=== PATIENT | male | born 1975 | race Caucasian/White ===

== ENCOUNTER 2024-09-08 00:14 | Inpatient (IN) ==
--- NOTE | 2024-09-08 00:29 | Emergency Department Note ---
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 Patient tried Tylenol with no relief of symptoms. Patient denies loss of bowel bladder control, saddle anesthesia, fever, chills, leg weakness, IV drug use. No trauma. 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 Repeat imaging in 2021 was unchanged. No follow-up since then per patient. Home Medications Medication Instructions Recorded Confirmed Type aspirin 81 mg tablet,delayed 81 mg PO DAILY #30 tabs 09/27/20 09/08/24 Rx release levothyroxine 150 mcg tablet 150 mcg PO DAILY #90 tabs 06/08/22 09/08/24 Rx clopidogrel 75 mg tablet 75 mg PO DAILY 09/08/24 09/08/24 History Allergies Allergy/AdvReac Type Severity Reaction Status Date / Time No Known Allergies Allergy Verified 09/08/24 01:01 Past Med/Surg History Problem List (Updated 09/08/24 @ 03:44 by Janett Davis PA-C) Intractable low back pain (Acute) Lumbar radiculopathy (Acute) Adenomatous polyps Benign essential hypertension Hepatic artery dissection Colon cancer screening Encounter for pre-operative examination Negative covid test 11/20/19. Hyperglycemia Hypothyroidism ADHD (attention deficit hyperactivity disorder), inattentive type Medical History ADHD (attention deficit hyperactivity disorder), inattentive type Diverticular disease Diverticulitis Hypothyroidism Surgical History History of wisdom tooth extraction Family History Grandfather (Maternal) Diabetes Heart disease Other No family history of adverse response to anesthesia Denies family history of Ovarian cancer Prostate cancer Myocardial infarction Breast cancer Lung cancer Colorectal cancer Hypertension Social History (Updated 06/06/22 @ 16:34 by Memo Potter MD) Smoking Status: Current every day smoker Tobacco Type: E-cigarettes / Vaping Age Started Using Tobacco: 26; Age Quit Using Tobacco: 36; packs per day: 0.50; Cigarettes Per Day: 10/day; Second Hand Exposure: No; Do You Dip or Chew Tobacco: No; Hx Alcohol Use: Yes Alcohol type: wine Alcohol Intake Frequency: Monthly or Less Hx Substance Use: No Preferred Language: Welsh Communication Ability: Effective Hearing Ability: Normal 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 Beliefs That Will Affect Care: None marital status: Current Living Situation: Spouse and Family Current Living Situation Comment: Lives with and 6 daughters How many Children do You have: 3 Feels Safe at Home: Yes Childhood Exposure to Second-Hand Smoke: Yes Seatbelt Use: always Sunscreen Use: Yes Assistive Devices: None Review of Systems A total of 10 systems reviewed and were otherwise negative Physical Exam Vital Signs Vital Signs - 24 hr 09/08/24 00:14 09/08/24 01:39 09/08/24 01:41 Temperature 36.7 C Temperature Source Temporal Artery Scan Pulse Rate 95 H 87 87 Pulse Rate from SpO2 Sensor 87 Respiratory Rate 20 23 Respiratory Effort / Characteristics Non-Labored Spontaneous Respiratory Depth Normal Blood Pressure 171/93 H 131/87 Blood Pressure Mean 119 101 Pulse Oximetry 95 94 Oxygen Delivery Method Room Air Room Air Sepsis Recent Fever Within 48 Hours No Sepsis New/Unexplained Change in Mental Status No Sepsis Action Taken by Nursing No Action Required 09/08/24 01:42 09/08/24 01:51 09/08/24 01:57 Temperature Temperature Source Pulse Rate 87 89 86 Pulse Rate from SpO2 Sensor 87 88 87 Respiratory Rate 27 H 18 19 Respiratory Effort / Characteristics Respiratory Depth Blood Pressure Blood Pressure Mean Pulse Oximetry 93 93 94 Oxygen Delivery Method Room Air Room Air Room Air Sepsis Recent Fever Within 48 Hours Sepsis New/Unexplained Change in Mental Status Sepsis Action Taken by Nursing 09/08/24 02:00 09/08/24 02:03 09/08/24 02:30 Temperature Temperature Source Pulse Rate 85 81 Pulse Rate from SpO2 Sensor 85 Respiratory Rate 20 20 Respiratory Effort / Characteristics Respiratory Depth Blood Pressure 123/97 122/90 Blood Pressure Mean 106 96 Pulse Oximetry 93 93 Oxygen Delivery Method Room Air Room Air Sepsis Recent Fever Within 48 Hours Sepsis New/Unexplained Change in Mental Status Sepsis Action Taken by Nursing 09/08/24 03:00 09/08/24 03:21 09/08/24 03:30 Temperature Temperature Source Pulse Rate 82 86 84 Pulse Rate from SpO2 Sensor 84 86 84 Respiratory Rate 20 18 17 Respiratory Effort / Characteristics Respiratory Depth Blood Pressure 139/96 119/93 Blood Pressure Mean 110 101 Pulse Oximetry 94 92 92 Oxygen Delivery Method Room Air Room Air Sepsis Recent Fever Within 48 Hours Sepsis New/Unexplained Change in Mental Status Sepsis Action Taken by Nursing VITALS: Vitals are noted on the nurse's note and reviewed by myself. Vital signs stable. GENERAL: Pleasant patient who appears in pain, in no acute distress, nondiaphoretic, well-developed well-nourished. SKIN: Capillary reflex less than 2 seconds. HEENT: Normocephalic. PERRLA. EOMI. Nares patent. Mucous membranes moist. Neck is supple without nuchal rigidity. HEART: Regular rate and rhythm LUNGS: Clear to auscultation bilaterally without wheezes, rales or rhonchi. No retractions or accessory muscle use. ABDOMEN: Positive bowel sounds x 4. Normal tympanic percussion. Soft, nontender, without masses or organomegaly. Garvin sign negative. No guarding or rebound tenderness. no CVA tenderness MUSCULOSKELETAL: No gross musculoskeletal defects. No thoracic or lumbar tenderness. Positive straight leg raise bilaterally, patient plantarflex and dorsiflex. NEURO: Patient was alert and oriented to person place and time. No focal neurological deficits. Course Administered Medications Discontinued Medications Dexamethasone Sodium Phosphate (DexamethasonePf 10 Mg/Ml Vial) 10 mg IV NOW ONE Stop: 09/08/24 00:50 Last Admin: 09/08/24 01:39 Dose: 10 mg Documented By: ARAVIND Diazepam (Diazepam 5 Mg/Ml 10ml Vial) 5 mg IV NOW STA Stop: 09/08/24 00:50 Last Admin: 09/08/24 01:39 Dose: 5 mg Documented By: ARAVIND Ioversol (Optiray 320 125ml) 125 ml IV ONCE ONE Stop: 09/08/24 01:37 Last Admin: 09/08/24 01:39 Dose: 118 ml Documented By: COLLEEN Ketorolac Tromethamine (Ketorolac Tromethamine 15 Mg/Ml Vial) 10 mg IV NOW STA Stop: 09/08/24 00:27 Last Admin: 09/08/24 00:33 Dose: 10 mg Documented By: ARAVIND Morphine Sulfate (Morphine Sulfate 4 Mg/Ml 1 Ml Carp\Vial) 4 mg IV NOW STA Stop: 09/08/24 02:53 Last Admin: 09/08/24 02:55 Dose: 4 mg Documented By: ARAVIND Medical Decision Making Medical Records Attestation: I reviewed the patient's medical records. Home Medications Current Medication List: was personally reviewed by me Laboratory Data Attestation: I reviewed the patient's lab results. 09/08/24 00:30 09/08/24 00:30 Lab Results 09/08/24 Range/Units 00:30 WBC 10.13 (4.8-10.8) K/ul RBC 5.06 (4.70-6.10) M/uL Hgb 15.7 (14.0-18.0) g/dl Hct 46.7 (42.0-52.0) % MCV 92.3 (80.0-100.0) fL MCH 31.0 (25.0-34.0) pg MCHC 33.6 (32.0-36.0) g/dL RDW Std Deviation 43.6 (36.4-46.3) fL RDW Coeff of [place] 12.8 (11.5-14.5) % Plt Count 228 (130-400) K/uL MPV 10.9 (9.4-12.4) fL Immature Gran % (Auto) 0.3 % Neut % (Auto) 65.7 % Lymph % (Auto) 26.1 % [place] % (Auto) 4.4 % Eos % (Auto) 2.9 % Baso % (Auto) 0.6 % Neut # (Auto) 6.66 H (1.40-6.50) K/uL Lymph # (Auto) 2.64 (1.20-3.40) K/uL [place] # (Auto) 0.45 (0.11-0.59) K/uL Eos # (Auto) 0.29 (0.00-0.50) K/uL Baso # (Auto) 0.06 (0.00-0.20) K/uL Immature Gran # (Auto) 0.03 (0.01-0.20) K/uL Sodium 137 (136-145) mmol/L Potassium 3.7 (3.5-5.1) mmol/L Chloride 102 (98-107) mmol/L Carbon Dioxide 28 (21-32) mmol/L Anion Gap 7 (3-11) BUN 12 (6-23) mg/dl Creatinine 1.15 (0.6-1.4) mg/dl Est Cr Clr Drug Dosing 83.4 ml/min eGFR 77.05 BUN/Creatinine Ratio 10.4 (10-20) Glucose 104 H (70-99(Fasting)) mg/dl Calcium 8.9 (8.6-10.3) mg/dl Total Bilirubin 0.4 (0.2-1.0) mg/dl AST 27 (13-39) U/L ALT 36 (7-52) U/L Alkaline Phosphatase 77 (34-104) U/L Total Protein 7.8 (6.0-8.3) gm/dl Albumin 4.5 (3.4-5.0) gm/dl Globulin 3.3 (2.5-4.0) gm/dl Albumin/Globulin Ratio 1.4 (0.9-2) Imaging Data Attestation: I personally reviewed and interpreted this imaging study as follows: Radiologist's Impression: Lumbar Spine MRI 09/08/24 00:27 EXAM: MR lumbar spine wo con CLINICAL HISTORY: LBP, B leg pain, R leg numbness TECHNIQUE: Multisequential and multiplanar images of the lumbar spine were submitted for review without contrast. COMPARISON: none FINDINGS: The conus terminates at approximately L1. Alignment of the lumbar spine is normal. Bone marrow signal is normal. No evidence of compression fracture. SI joints are within normal limits. Limited evaluation of the sacrum is normal. The visualized paravertebral soft tissues are unremarkable. Loss of lumbar lordosis- likely due to paraspinal muscle spasm. Small hemangiomas seen in multiple lumbar vertebral bodies. Disc desiccation seen at L3/L4, L4/L5 and L5/S1 levels. L3-L4: Posterior small left paracentral disc protrusion indenting anterior thecal sac. No significant canal stenosis or neuroforaminal narrowing. Subarticular recesses are patent. L4-L5: Posterior mild diffuse disc bulge indenting anterior thecal sac. No significant canal stenosis or neuroforaminal narrowing. Subarticular recesses are patent. L5-S1: No disc bulge, canal stenosis or neuroforaminal narrowing. Subarticular recesses are patent. IMPRESSION: 1. Mild lumbar spondylosis. 2. Small hemangiomas seen in multiple lumbar vertebral bodies. 3. L3-L4: Posterior small left paracentral disc protrusion indenting anterior thecal sac. No significant canal stenosis or neuroforaminal narrowing. Subarticular recesses are patent. 4. L4-L5: Posterior mild diffuse disc bulge indenting anterior thecal sac. No significant canal stenosis or neuroforaminal narrowing. Subarticular recesses are patent. Electronically signed by Prasad Felton 09-08-2024 02:29 AM Abdomen/Pelvis CTA 09/08/24 00:43 EXAM: CT angio abd pelvis wo/w con CLINICAL HISTORY: severe back pain, hx celiac and hepatic dissection TECHNIQUE: Contrast enhanced thin slice CT angiography scan of the abdominal aorta was performed without and with intravenous contrast. Angiographic images were processed, 3D MIP images were acquired for interpretation. Contiguous axial images were obtained. Reformatted coronal and sagittal images were also reviewed. If IV contrast material had not been administered, the likelihood of detecting abnormalities relevant to the patients condition would have been substantially decreased. CT scan was performed according to ALARA (as low as reasonable achievable). COMPARISON: none. FINDINGS: Evidence of hypodense septum is noted involving celiac trunk extending into the proximal part of right common hepatic artery and splenic artery- suggestive of dissection. Evidence of hypodense filling defect is noted involving false lumen of right common hepatic artery dissection- suggest possibility of thrombosis. Abdominal aorta is normal in course, calibre and opacification. Origin of superior mesenteric artery , bilateral main renal and lumbar arteries are normal with no hemodynamically significant ostial stenosis noted. Bilateral common, external and internal iliac arteries are normal in course, caliber and opacification. Hepatic steatosis. Multiple small uncomplicated sigmoid colonic diverticulosis Solid abdominal organs including spleen, pancreas and bilateral kidneys reveal no significant abnormality. Bowel loops are grossly unremarkable. No evidence of ascites. IMPRESSION: 1. Evidence of hypodense septum is noted involving celiac trunk extending into the proximal part of common hepatic artery and splenic artery- suggestive of dissection. 2. Evidence of hypodense filling defect is noted involving false lumen of right common hepatic artery dissection- suggest possibility of thrombosis. 3. Hepatic steatosis. 4. Multiple small uncomplicated sigmoid colonic diverticulosis Electronically signed by Prasad Felton 09-08-2024 03:21 AM Chest CTA 09/08/24 00:43 EXAM: CT angio chest dissec wo/w con CLINICAL HISTORY: severe back pain, hx celiac and hepatic dissection TECHNIQUE: Contiguous axial images were obtained from the neck base through the upper abdomen with and without intravenous administration of iodinated contrast material. Angiographic images were processed, 3D MIP images were acquired for interpretation. If IV contrast material had not been administered, the likelihood of detecting abnormalities relevant to the patient's condition would have been substantially decreased. Coronal and sagittal 3-D MIPs were likewise performed and indicated to increase the sensitivity of detectin diffuse clinically relevant pathology. CT scan was performed according to ALARA (as low as reasonable achievable). COMPARISON: None. FINDINGS: Adequate contrast bolus without evidence of pulmonary embolism. The central airways are patent. The lungs are clear. No pleural effusion. The heart, aorta, and pulmonary arteries are of normal size and configuration. There are no appreciable coronary artery and aortic atherosclerotic calcifications. No pericardial effusion is identified. The thyroid is unremarkable. No mediastinal, hilar, or axillary lymphadenopathy is noted. No suspicious lytic or sclerotic osseous lesions are identified. IMPRESSION: No evidence of pulmonary embolism or pulmonary disease. No obvious aortic dissection or aneurysm. Electronically signed by Prasad Felton 09-08-2024 03:15 AM [facility] Narrative Prior records/ancillary studies reviewed. Triage Nursing notes reviewed. Additional history obtained from nursing. The patient's history was concerning for back pain. Differential diagnosis: Etiologies such as musculoskeletal, disc herniation, fracture, aortic disease, metastatic disease, cord compression, discitis, infection, renal colic, gastrointestinal, acute exacerbation of chronic back pain, sciatica, cauda equina, as well as others were entertained. Physical findings: As above. No focal neurologic findings noted. ER treatment provided: Toradol was ordered Morphine, Decadron and Valium was ordered, morphine was ordered On reassessment the patient felt better. Diagnostics interpreted by me: The labs Independently Interpreted by myself revealed no worrisome leukocytosis, stable H&H, glucose 104 Imaging studies: Imaging was reviewed and read by radiology I did speak to embryo and states they have no old CTs to compare to. I did inform [facility] there was a dictation and from 2020 that stated that he did have this chronic dissection. Consultation: A consultation was placed with hospitalist. The case was discussed and diagnostics were reviewed. They will evaluate the patient for possible admission.. This appears to be consistent with lumbar radiculopathy. 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 There was no old imaging for [facility] to review. Patient was neurovascularly and neurologically intact. Patient was still in moderate amount of pain and did not feel comfortable going home. Medicine was consulted and the case was discussed. He will be evaluated for admission. By the evaluation outlined above emergent etiologies such as fracture, aortic disease, metastatic disease, infection, renal colic, gastrointestinal, cord compression, cauda equina, as well as others were deemed relatively unlikely. The pt informed about the findings as listed above. All questions were answered and pleased with the treatment. The chart was completed utilizing [employer] voice recognition software. Grammatical errors, random word insertions, pronoun errors, and incomplete sentences are an occassional consequence of this system due to software limitations, ambient noise, and hardware issues. Any formal questions or concerns about the content, text, or information contained within the body of this dictation should be directly addressed to the physician assistant to the president for clarification. Impression & Plan Lumbar radiculopathy, Intractable low back pain Discharge Plan Visit Data Chief Complaint: Back Injury/Pain Stated Complaint: BACK/LEG PAIN ED Provider: Mariza Quinteros ED Midlevel Provider: Janett Davis Discharge Problem: Lumbar radiculopathy, Intractable low back pain Patient Disposition: Being Evaluated by Hospitalist Condition: Good Forms Stand Alone Forms: My [employer] Prescriptions Prescriptions: No Action levothyroxine 150 mcg tablet 150 mcg PO DAILY Qty: 90 1RF aspirin 81 mg tablet,delayed release (DR/EC) 81 mg PO DAILY Qty: 30 2RF clopidogrel 75 mg tablet 75 mg PO DAILY Referrals Referrals: Memo Potter MD [Primary Care Provider] -
[2024-09-08] MEDS: KETOROLAC TROMETHAMINE 15 MG/ML VIAL IV STA (00:33)
[2024-09-08 00:47] LABS: Hematocrit (blood only) 46.7 % (42.0-52.0); Hemoglobin 15.7 g/dl (14.0-18.0); Immature Granulocytes # (auto) 0.03 K/uL (0.01-0.20); Immature Granulocytes % (auto) 0.3 %; Mean Corpuscular Hemoglobin 31.0 pg (25.0-34.0); Mean Corpuscular Volume 92.3 fL (80.0-100.0); Platelet Count 228 K/uL (130-400); RDW Standard Deviation 43.6 fL (36.4-46.3); Red Blood Count 5.06 M/uL (4.70-6.10); White Blood Count 10.13 K/ul (4.8-10.8)
[2024-09-08 01:05] LABS: Alanine Aminotransferase 36.0 U/L (7-52); Albumin Globulin Ratio 1.4 (0.9-2); Alkaline Phosphatase 77.0 U/L (34-104); Anion Gap 7.0 (3-11); Bilirubin,Total 0.4 mg/dl (0.2-1.0); Blood Urea Nitrogen 12.0 mg/dl (6-23); Calcium 8.9 mg/dl (8.6-10.3); Carbon Dioxide 28.0 mmol/L (21-32); Chloride 102.0 mmol/L (98-107); Creatinine Clr Calc Pharmacy 83.4 ml/min; Globulin 3.3 gm/dl (2.5-4.0); Glucose 104.0 mg/dl (70-99(Fasting)); Potassium 3.7 mmol/L (3.5-5.1); Sodium 137.0 mmol/L (136-145); Total Protein 7.8 gm/dl (6.0-8.3)
[2024-09-08] MEDS: diazePAM 5 MG/ML 10ML VIAL IV STA (01:39)
[2024-09-08] MEDS: OPTIRAY 320 125ml IV ONE (01:39)
[2024-09-08] MEDS: dexAMETHasone**PF** 10 MG/ML VIAL IV ONE (01:39)
--- NOTE | 2024-09-08 02:30 | Magnetic Resonance Report ---
EXAM: MR lumbar spine wo con CLINICAL HISTORY: LBP, B leg pain, R leg numbness TECHNIQUE: Multisequential and multiplanar images of the lumbar spine were submitted for review without contrast. COMPARISON: none FINDINGS: The conus terminates at approximately L1. Alignment of the lumbar spine is normal. Bone marrow signal is normal. No evidence of compression fracture. SI joints are within normal limits. Limited evaluation of the sacrum is normal. The visualized paravertebral soft tissues are unremarkable. Loss of lumbar lordosis- likely due to paraspinal muscle spasm. Small hemangiomas seen in multiple lumbar vertebral bodies. Disc desiccation seen at L3/L4, L4/L5 and L5/S1 levels. L3-L4: Posterior small left paracentral disc protrusion indenting anterior thecal sac. No significant canal stenosis or neuroforaminal narrowing. Subarticular recesses are patent. L4-L5: Posterior mild diffuse disc bulge indenting anterior thecal sac. No significant canal stenosis or neuroforaminal narrowing. Subarticular recesses are patent. L5-S1: No disc bulge, canal stenosis or neuroforaminal narrowing. Subarticular recesses are patent. IMPRESSION: 1. Mild lumbar spondylosis. 2. Small hemangiomas seen in multiple lumbar vertebral bodies. 3. L3-L4: Posterior small left paracentral disc protrusion indenting anterior thecal sac. No significant canal stenosis or neuroforaminal narrowing. Subarticular recesses are patent. 4. L4-L5: Posterior mild diffuse disc bulge indenting anterior thecal sac. No significant canal stenosis or neuroforaminal narrowing. Subarticular recesses are patent. Electronically signed by Prasad Felton 09-08-2024 02:29 AM
[2024-09-08] MEDS: MoRPHine SULFATE 4 MG/ML 1 ML CARP\\VIAL IV STA ×2 (02:55→04:41)
--- NOTE | 2024-09-08 03:15 | CT Scan Report ---
EXAM: CT angio chest dissec wo/w con CLINICAL HISTORY: severe back pain, hx celiac and hepatic dissection TECHNIQUE: Contiguous axial images were obtained from the neck base through the upper abdomen with and without intravenous administration of iodinated contrast material. Angiographic images were processed, 3D MIP images were acquired for interpretation. If IV contrast material had not been administered, the likelihood of detecting abnormalities relevant to the patient's condition would have been substantially decreased. Coronal and sagittal 3-D MIPs were likewise performed and indicated to increase the sensitivity of detectin diffuse clinically relevant pathology. CT scan was performed according to ALARA (as low as reasonable achievable). COMPARISON: None. FINDINGS: Adequate contrast bolus without evidence of pulmonary embolism. The central airways are patent. The lungs are clear. No pleural effusion. The heart, aorta, and pulmonary arteries are of normal size and configuration. There are no appreciable coronary artery and aortic atherosclerotic calcifications. No pericardial effusion is identified. The thyroid is unremarkable. No mediastinal, hilar, or axillary lymphadenopathy is noted. No suspicious lytic or sclerotic osseous lesions are identified. IMPRESSION: No evidence of pulmonary embolism or pulmonary disease. No obvious aortic dissection or aneurysm. Electronically signed by Prasad Felton 09-08-2024 03:15 AM
--- NOTE | 2024-09-08 03:22 | CT Scan Report ---
EXAM: CT angio abd pelvis wo/w con CLINICAL HISTORY: severe back pain, hx celiac and hepatic dissection TECHNIQUE: Contrast enhanced thin slice CT angiography scan of the abdominal aorta was performed without and with intravenous contrast. Angiographic images were processed, 3D MIP images were acquired for interpretation. Contiguous axial images were obtained. Reformatted coronal and sagittal images were also reviewed. If IV contrast material had not been administered, the likelihood of detecting abnormalities relevant to the patients condition would have been substantially decreased. CT scan was performed according to ALARA (as low as reasonable achievable). COMPARISON: none. FINDINGS: Evidence of hypodense septum is noted involving celiac trunk extending into the proximal part of right common hepatic artery and splenic artery- suggestive of dissection. Evidence of hypodense filling defect is noted involving false lumen of right common hepatic artery dissection- suggest possibility of thrombosis. Abdominal aorta is normal in course, calibre and opacification. Origin of superior mesenteric artery , bilateral main renal and lumbar arteries are normal with no hemodynamically significant ostial stenosis noted. Bilateral common, external and internal iliac arteries are normal in course, caliber and opacification. Hepatic steatosis. Multiple small uncomplicated sigmoid colonic diverticulosis Solid abdominal organs including spleen, pancreas and bilateral kidneys reveal no significant abnormality. Bowel loops are grossly unremarkable. No evidence of ascites. IMPRESSION: 1. Evidence of hypodense septum is noted involving celiac trunk extending into the proximal part of common hepatic artery and splenic artery- suggestive of dissection. 2. Evidence of hypodense filling defect is noted involving false lumen of right common hepatic artery dissection- suggest possibility of thrombosis. 3. Hepatic steatosis. 4. Multiple small uncomplicated sigmoid colonic diverticulosis Electronically signed by Prasad Felton 09-08-2024 03:21 AM
--- NOTE | 2024-09-08 04:18 | History & Physical Report ---
Date of Service September 08, 2024 Assessment & Plan (1) Intractable low back pain: (2) Hepatic artery dissection: (3) Hypothyroidism: Plan 49yo male presenting with acute lumbar back pain with radiculopathy - numbness, tingling, subjective weakness of bilateral LE L>R. Pain occurred acutely after lifting up his child. Patient with chronic dissection of the hepatic artery. He has been evaluated by vascular surgery in the past and has been told that there is nothing to do. He was previously on ASA and Plavix but has been on ASA alone for a while. He has not had thrombus present in the dissection before to his knowledge. He has missed the last several followup appointments for imaging for this issue. #Intractable low back pain - acute onset 3 days ago. MRI results as above with posterior small left paracentral disc protrusion indenting anterior thecal sac at L3-L4 and L4-L5 posterior mild diffuse disc bulge indenting anterior thecal sac. -Observation to medical -Tylenol 1gm PO TID scheduled -Prednisone 40mg po daily - patient received 10mg IV Dexamethasone in ER -Flexeril 5mg po TID -Heat -Morphine PRN -Ortho-Spine consultation appreciated -PT evaluation appreciated #Hepatic artery dissection - suggestion of thrombus on imaging -Will try to have day time radiologists review imaging for comparison on dissection size and presence of thrombus -Hold ASA and Plavix for now -Anticoagulation with heparin gtt for now #Hypothyroidism -Check TSH -Continue Synthroid 150mcg po daily History of Present Illness Chief Complaint: severe back pain Primary Care Provider: Memo Potter MD Reed Calderon is a 49yo male with history of HTN, chronic dissection of hepatic artery presenting with severe back pain with radicular symptoms. Patient was picking up his child on 09/04/24 - lifting with some twisting. He heard a pop and had severe pain in his lumbar back. He has had radiation of pain as well as numbness and tingling of the LLE now with symptoms involving his RLE a well. Legs feel weak and he required some help getting up and in the vehicle this evening. No falls, trauma, fever, chills. No bowel or bladder complaints. No additional complaints at this time In the ER patient afebrile, HD stable ER Course: Toradol 10mg IV Dexamethasone 10mg IV Valium 5mg IV Morphine 4mg IV Allergies Allergy/AdvReac Type Severity Reaction Status Date / Time No Known Allergies Allergy Verified 09/08/24 01:01 Home Medications Medication Instructions Recorded Confirmed Type aspirin 81 mg tablet,delayed 81 mg PO DAILY #30 tabs 09/27/20 09/08/24 Rx release levothyroxine 150 mcg tablet 150 mcg PO DAILY #90 tabs 06/08/22 09/08/24 Rx clopidogrel 75 mg tablet 75 mg PO DAILY 09/08/24 09/08/24 History Past Med/Surg History Problem List Intractable low back pain (Acute) Lumbar radiculopathy (Acute) Adenomatous polyps Benign essential hypertension Hepatic artery dissection Colon cancer screening Encounter for pre-operative examination Negative covid test 11/20/19. Hyperglycemia Hypothyroidism ADHD (attention deficit hyperactivity disorder), inattentive type Medical History Diverticulitis Diverticular disease Surgical History History of wisdom tooth extraction Family History Grandfather (Maternal) Diabetes Heart disease Other No family history of adverse response to anesthesia Denies family history of Ovarian cancer Prostate cancer Myocardial infarction Breast cancer Lung cancer Colorectal cancer Hypertension Social History Smoking Status: Current every day smoker Tobacco Type: E-cigarettes / Vaping Age Started Using Tobacco: 26; Age Quit Using Tobacco: 36; packs per day: 0.50; Cigarettes Per Day: 10/day; Second Hand Exposure: No; Do You Dip or Chew Tobacco: No; Hx Alcohol Use: Yes Alcohol type: wine Alcohol Intake Frequency: Monthly or Less Hx Substance Use: No Preferred Language: Danish Communication Ability: Effective Hearing Ability: Normal 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 Beliefs That Will Affect Care: None marital status: Current Living Situation: Spouse and Family Current Living Situation Comment: Lives with and 6 daughters How many Children do You have: 3 Feels Safe at Home: Yes Childhood Exposure to Second-Hand Smoke: Yes Seatbelt Use: always Sunscreen Use: Yes Assistive Devices: None Review of Systems Review of Systems: All systems reviewed & are unremarkable except as noted in HPI & below Physical Exam Physical Exam: General: patient in discomfort, AA&O x 4 Skin: warm, dry, intact, no rashes or lesions HEENT: NC/AT, PERRL, EOMI, anicteric sclera, conjunctiva without injection, external ear normal to inspection and nontender, nares patent, moist mucus membranes, dentition intact, no oropharyngeal lesions, neck supple, trachea midline, no LAD, no thyromegaly, no JVD Heart: +S1/S2, regular, no m/r/g Lungs: equal air entry bilaterally, no rales/rhonchi/wheezes Abd: +BS, soft, NT/ND, no masses/organomegaly/ascites Ext: warm, 2+ pulses in UE/LE bilaterally, no clubbing/cyanosis or edema Neuro: nonfocal, patient AA&O x 4, speech intact, no facial droop, moving all extremities on command with equal strength 5/5 Pain with movement of legs Tenderness of lower lumbar paraspinal musculature Strength intact, difficult to assess reflexes Results & Data Results & Data Vital Signs (Past 12 Hours) Vital Signs Temp Pulse Resp BP Pulse Ox O2 Del Method 09/08/24 04:14 Room Air 09/08/24 04:00 76 20 146/96 H 94 Room Air 09/08/24 03:42 82 21 95 09/08/24 03:30 119/93 09/08/24 03:30 84 17 119/93 92 Room Air 09/08/24 03:21 86 18 92 09/08/24 03:00 82 20 139/96 94 Room Air 09/08/24 02:30 81 20 122/90 93 Room Air 09/08/24 02:03 85 20 93 Room Air 09/08/24 02:00 123/97 09/08/24 01:57 86 19 94 Room Air 09/08/24 01:51 89 18 93 Room Air 09/08/24 01:42 87 27 H 93 Room Air 09/08/24 01:41 87 09/08/24 01:39 87 23 131/87 94 Room Air 09/08/24 00:14 36.7 C 95 H 20 171/93 H 95 Room Air Laboratory Results Laboratory Results WBC 10.13 K/ul (4.8-10.8) 09/08/24 00:30 RBC 5.06 M/uL (4.70-6.10) 09/08/24 00:30 Hgb 15.7 g/dl (14.0-18.0) 09/08/24 00: Hct 46.7 % (42.0-52.0) 09/08/24 00: MCV 92.3 fL (80.0-100.0) 09/08/24 00: MCH 31.0 pg (25.0-34.0) 09/08/24 00: MCHC 33.6 g/dL (32.0-36.0) 09/08/24 00: RDW Std Deviation 43.6 fL (36.4-46.3) 09/08/24 00: RDW Coeff of [place] 12.8 % (11.5-14.5) 09/08/24 00: Plt Count 228 K/uL (130-400) 09/08/24 00: MPV 10.9 fL (9.4-12.4) 09/08/24 00: Immature Gran % (Auto) 0.3 % 09/08/24 00: Neut % (Auto) 65.7 % 09/08/24 00:30 Lymph % (Auto) 26.1 % 09/08/24 00:30 [place] % (Auto) 4.4 % 09/08/24 00:30 Eos % (Auto) 2.9 % 09/08/24 00: Baso % (Auto) 0.6 % 09/08/24 00:30 Neut # (Auto) 6.66 K/uL (1.40-6.50) H 09/08/24 00:30 Lymph # (Auto) 2.64 K/uL (1.20-3.40) 09/08/24 00:30 [place] # (Auto) 0.45 K/uL (0.11-0.59) 09/08/24 00:30 Eos # (Auto) 0.29 K/uL (0.00-0.50) 09/08/24 00:30 Baso # (Auto) 0.06 K/uL (0.00-0.20) 09/08/24 00:30 Immature Gran # (Auto) 0.03 K/uL (0.01-0.20) 09/08/24 00:30 Sodium 137 mmol/L (136-145) 09/08/24 00:30 Potassium 3.7 mmol/L (3.5-5.1) 09/08/24: Chloride 102 mmol/L (98-107) 09/08/24 00: Carbon Dioxide 28 mmol/L (21-32) 09/08/24 00: Anion Gap 7 (3-11) 09/08/24 BUN 12 mg/dl (6-23) 09/08/24: Creatinine 1.15 mg/dl (0.6-1.4) 09/08/24 00: Est Cr Clr Drug Dosing 83.4 ml/min 09/08/24: eGFR 77.05 09/08/24: BUN/Creatinine Ratio 10.4 (10-20) 09/08/24 Glucose 104 mg/dl (70-99(Fasting)) H 09/08/24: Calcium 8.9 mg/dl (8.6-10.3) 09/08/24: Total Bilirubin 0.4 mg/dl (0.2-1.0) 09/08/24 00: AST 27 U/L (13-39) 09/08/24:30 ALT 36 U/L (7-52) 09/08/24: Alkaline Phosphatase 77 U/L (34-104) 09/08/24: Total Protein 7.8 gm/dl (6.0-8.3) 09/08/24: Albumin 4.5 gm/dl (3.4-5.0) 09/08/24:30 Globulin 3.3 gm/dl (2.5-4.0) 09/08/24 00:30 Albumin/Globulin Ratio 1.4 (0.9-2) 09/08/24 00:30 Impressions Lumbar Spine MRI 09/08/24 00:27 EXAM: MR lumbar spine wo con CLINICAL HISTORY: LBP, B leg pain, R leg numbness TECHNIQUE: Multisequential and multiplanar images of the lumbar spine were submitted for review without contrast. COMPARISON: none FINDINGS: The conus terminates at approximately L1. Alignment of the lumbar spine is normal. Bone marrow signal is normal. No evidence of compression fracture. SI joints are within normal limits. Limited evaluation of the sacrum is normal. The visualized paravertebral soft tissues are unremarkable. Loss of lumbar lordosis- likely due to paraspinal muscle spasm. Small hemangiomas seen in multiple lumbar vertebral bodies. Disc desiccation seen at L3/L4, L4/L5 and L5/S1 levels. L3-L4: Posterior small left paracentral disc protrusion indenting anterior thecal sac. No significant canal stenosis or neuroforaminal narrowing. Subarticular recesses are patent. L4-L5: Posterior mild diffuse disc bulge indenting anterior thecal sac. No significant canal stenosis or neuroforaminal narrowing. Subarticular recesses are patent. L5-S1: No disc bulge, canal stenosis or neuroforaminal narrowing. Subarticular recesses are patent. IMPRESSION: 1. Mild lumbar spondylosis. 2. Small hemangiomas seen in multiple lumbar vertebral bodies. 3. L3-L4: Posterior small left paracentral disc protrusion indenting anterior thecal sac. No significant canal stenosis or neuroforaminal narrowing. Subarticular recesses are patent. 4. L4-L5: Posterior mild diffuse disc bulge indenting anterior thecal sac. No significant canal stenosis or neuroforaminal narrowing. Subarticular recesses are patent. Electronically signed by Prasad Felton 09-08-2024 02:29 AM Abdomen/Pelvis CTA 09/08/24 00:43 EXAM: CT angio abd pelvis wo/w con CLINICAL HISTORY: severe back pain, hx celiac and hepatic dissection TECHNIQUE: Contrast enhanced thin slice CT angiography scan of the abdominal aorta was performed without and with intravenous contrast. Angiographic images were processed, 3D MIP images were acquired for interpretation. Contiguous axial images were obtained. Reformatted coronal and sagittal images were also reviewed. If IV contrast material had not been administered, the likelihood of detecting abnormalities relevant to the patients condition would have been substantially decreased. CT scan was performed according to ALARA (as low as reasonable achievable). COMPARISON: none. FINDINGS: Evidence of hypodense septum is noted involving celiac trunk extending into the proximal part of right common hepatic artery and splenic artery- suggestive of dissection. Evidence of hypodense filling defect is noted involving false lumen of right common hepatic artery dissection- suggest possibility of thrombosis. Abdominal aorta is normal in course, calibre and opacification. Origin of superior mesenteric artery , bilateral main renal and lumbar arteries are normal with no hemodynamically significant ostial stenosis noted. Bilateral common, external and internal iliac arteries are normal in course, caliber and opacification. Hepatic steatosis. Multiple small uncomplicated sigmoid colonic diverticulosis Solid abdominal organs including spleen, pancreas and bilateral kidneys reveal no significant abnormality. Bowel loops are grossly unremarkable. No evidence of ascites. IMPRESSION: 1. Evidence of hypodense septum is noted involving celiac trunk extending into the proximal part of common hepatic artery and splenic artery- suggestive of dissection. 2. Evidence of hypodense filling defect is noted involving false lumen of right common hepatic artery dissection- suggest possibility of thrombosis. 3. Hepatic steatosis. 4. Multiple small uncomplicated sigmoid colonic diverticulosis Electronically signed by Prasad Felton 09-08-2024 03:21 AM Chest CTA 09/08/24 00:43 EXAM: CT angio chest dissec wo/w con CLINICAL HISTORY: severe back pain, hx celiac and hepatic dissection TECHNIQUE: Contiguous axial images were obtained from the neck base through the upper abdomen with and without intravenous administration of iodinated contrast material. Angiographic images were processed, 3D MIP images were acquired for interpretation. If IV contrast material had not been administered, the likelihood of detecting abnormalities relevant to the patient's condition would have been substantially decreased. Coronal and sagittal 3-D MIPs were likewise performed and indicated to increase the sensitivity of detectin diffuse clinically relevant pathology. CT scan was performed according to ALARA (as low as reasonable achievable). COMPARISON: None. FINDINGS: Adequate contrast bolus without evidence of pulmonary embolism. The central airways are patent. The lungs are clear. No pleural effusion. The heart, aorta, and pulmonary arteries are of normal size and configuration. There are no appreciable coronary artery and aortic atherosclerotic calcifications. No pericardial effusion is identified. The thyroid is unremarkable. No mediastinal, hilar, or axillary lymphadenopathy is noted. No suspicious lytic or sclerotic osseous lesions are identified. IMPRESSION: No evidence of pulmonary embolism or pulmonary disease. No obvious aortic dissection or aneurysm. Electronically signed by Prasad Felton 09-08-2024 03:15 AM PG Care Time/CCT Total # of Minutes Spent Total Time Spent with Patient: Total time spent is greater than 50% in coordination of care (as documented) at patient's floor/unit and/or counseling patient: Coding Level of Care Code 87386 INT INP/OBS CARE 3/75MIN Diagnoses Intractable low back pain M54.59 Hepatic artery dissection I77.79 Acquired hypothyroidism E03.9 Hypothyroidism type: acquired (3) Hypothyroidism Hypothyroidism type: acquired Qualified Code(s): E03.9 - Hypothyroidism, unspecified
[2024-09-08 05:33] VITALS: RESP 18
[2024-09-08] MEDS ORDERED: MoRPHine SULFATE 2 MG/ML CARP IV PRN (05:48)
[2024-09-08] MEDS ORDERED: POLYETHYLENE (MIRALAX) 17 GM PACK PO PRN (05:48)
[2024-09-08] MEDS ORDERED: ONDANSETRON INJ 2 MG/ML 2 ML VIAL IV PRN (05:48)
[2024-09-08] MEDS ORDERED: Heparin IV Adult Wt-Based Standard *NO* INITIAL Bolus Protocol IV STA (05:48)
[2024-09-08] MEDS: LEVOTHYROXINE SODIUM 150 MCG TABLET PO SCH (06:34)
[2024-09-08 07:09] LABS: INR 1.0 (0.9-1.1); Partial Thromboplastin Time 28 Seconds (21-31); Prothrombin Time 10.6 Seconds (9.0-12.0)
[2024-09-08 07:14] LABS: Thyroid Stimulating Hormone 7.184 uIu/ml (0.300-4.500)
[2024-09-08] MEDS: HEPARIN 25000 UNIT/500 ML D5W 25,000 UNITS/500 ML BAG IV SCH (07:20)
[2024-09-08 07:31] VITALS: BP 147/90; PULSE 81; TEMP 97.7; O2SAT 93
[2024-09-08] MEDS: DOCUSATE SODIUM 100 MG CAP PO SCH (08:19)
[2024-09-08] MEDS: MoRPHine SULFATE 4 MG/ML 1 ML CARP\\VIAL IV PRN (08:19)
[2024-09-08] MEDS: ACETAMINOPHEN 500 MG TAB PO SCH (08:19)
[2024-09-08] MEDS: CYCLOBENZAPRINE HCL 5 MG TAB PO SCH (08:20)
[2024-09-08] MEDS: predniSONE 20 MG TAB PO SCH (08:20)
--- NOTE | 2024-09-08 09:21 | Orthopedic Consultation ---
Date of Service September 08, 2024 Assessment & Plan (1) Bulging lumbar disc: * Case/imaging reviewed and discussed with Dr Gallardo * MRI reviewed, minimal disc bulge at the L3-4 level * Recommend conservative care, including PT/OT for mobilization and pain control * Pain management consult placed * Otherwise recommend NSAID, Lyrica, steroid taper * Disposition: Home * Daily treatment: Physical Therapy/ Occupational Therapy per protocol * Weight bearing status: As tolerated * Pain control * Remainder care per primary team * Will continue to follow, plan for outpatient follow-up History of Present Illness Reason for Consultation: . Low back pain Requesting Physician: . Attending Physician: Marissa Jacobs MD Patient is a 49y/o male with low back pain. PMH including known hepatic artery dissection, hypothyroidism, hyperglycemia. Presents to hospital with persistent low back pain. Per report patient bent down to pick something up a few days ago and felt a pop/strain in his low back today and has had persistent pain, spasm of the low back with limited mobility and weakness secondary to pain of both legs, left worse than right. Had been trying to manage conservatively at home however due to persistence of symptoms presented to ED for further evaluation. Current workup including MRI lumbar spine demonstrates slight disc bulge at L3- 4, otherwise no fracture or malalignment of the lumbar spine. Admitted to medicine team for observation.. Orthopedics consulted for management recommendations. At time of exam patient lying comfortably in bed, no acute distress. Endorses constant mildmoderate pain of the lumbar region that also radiates down both legs, left worse than right reports subjective numbness throughout the bilateral thighs, again left worse than right. Requires assistance for ambulation. Denies changes in bowel/bladder function, denies paresthesias of the groin or perianal region. Allergies Allergy/AdvReac Type Severity Reaction Status Date / Time No Known Allergies Allergy Verified 09/08/24 01:01 Home Medications Medication Instructions Recorded Confirmed Type aspirin 81 mg tablet,delayed 81 mg PO DAILY #30 tabs 09/27/20 09/08/24 Rx release levothyroxine 150 mcg tablet 150 mcg PO DAILY #90 tabs 06/08/22 09/08/24 Rx clopidogrel 75 mg tablet 75 mg PO DAILY 09/08/24 09/08/24 History Past Med/Surg History Problem List (Updated 09/08/24 @ 09:19 by Diaz Paula PA-C) Bulging lumbar disc Intractable low back pain (Acute) Lumbar radiculopathy (Acute) Adenomatous polyps Benign essential hypertension Hepatic artery dissection Colon cancer screening Encounter for pre-operative examination Negative covid test 11/20/19. Hyperglycemia Hypothyroidism ADHD (attention deficit hyperactivity disorder), inattentive type Medical History Diverticulitis Diverticular disease Surgical History History of wisdom tooth extraction Family History Grandfather (Maternal) Diabetes Heart disease Other No family history of adverse response to anesthesia Denies family history of Ovarian cancer Prostate cancer Myocardial infarction Breast cancer Lung cancer Colorectal cancer Hypertension Social History Smoking Status: Current every day smoker Tobacco Type: Cigarettes Age Started Using Tobacco: 26; Age Quit Using Tobacco: 36; packs per day: 0.50; Cigarettes Per Day: 1-2; Second Hand Exposure: No; Do You Dip or Chew Tobacco: No; Hx Alcohol Use: Yes Alcohol type: beer and wine Alcohol Intake Frequency: Monthly or Less Hx Substance Use: No Preferred Language: Persian Communication Ability: Effective Hearing Ability: Normal Radio Communications Superintendent Required: No Beliefs That Will Affect Care: None marital status: Current Living Situation: Spouse Current Living Situation Comment: Lives with and 6 daughters How many Children do You have: 3 Feels Safe at Home: Yes Safety Concerns: Feels Safe At This Time Childhood Exposure to Second-Hand Smoke: Yes Seatbelt Use: always Sunscreen Use: Yes Assistive Devices: None Review of Systems All systems reviewed & are unremarkable except as noted in HPI & below. Physical Exam . General: Alert and oriented, no acute distress * Constitutional: well-developed, well-nourished. * Respiratory: Normal respiratory effort, no distress * Gastrointestinal: No tenderness to palpation, no rigidity or guarding. * Skin: No rash or lesion. * Neurologic: Grossly normal * Musculoskeletal: Lumbar spine region without obvious deformity or overlying skin changes. Moderate tenderness and spasm of the midline lumbar spine and lumbar paraspinal region. Otherwise no specific tenderness throughout the bilateral buttock, thigh, lower legs. Lumbar flexion/extension and rotation RO M limited secondary to pain. AROM b/l hip flexion significant limited secondary to pain, strength 4/5. Bilateral knee extension, ankle dorsiflexion, plantarflexion all 5/5 strength bilaterally. Sensation intact plantar/dorsal foot. Brisk capillary refill. Results & Data Results & Data Laboratory Results . Diagnostic Findings . Lumbar Spine MRI 09/08/24 00:27 EXAM: MR lumbar spine wo con CLINICAL HISTORY: LBP, B leg pain, R leg numbness TECHNIQUE: Multisequential and multiplanar images of the lumbar spine were submitted for review without contrast. COMPARISON: none FINDINGS: The conus terminates at approximately L1. Alignment of the lumbar spine is normal. Bone marrow signal is normal. No evidence of compression fracture. SI joints are within normal limits. Limited evaluation of the sacrum is normal. The visualized paravertebral soft tissues are unremarkable. Loss of lumbar lordosis- likely due to paraspinal muscle spasm. Small hemangiomas seen in multiple lumbar vertebral bodies. Disc desiccation seen at L3/L4, L4/L5 and L5/S1 levels. L3-L4: Posterior small left paracentral disc protrusion indenting anterior thecal sac. No significant canal stenosis or neuroforaminal narrowing. Subarticular recesses are patent. L4-L5: Posterior mild diffuse disc bulge indenting anterior thecal sac. No significant canal stenosis or neuroforaminal narrowing. Subarticular recesses are patent. L5-S1: No disc bulge, canal stenosis or neuroforaminal narrowing. Subarticular recesses are patent. IMPRESSION: 1. Mild lumbar spondylosis. 2. Small hemangiomas seen in multiple lumbar vertebral bodies. 3. L3-L4: Posterior small left paracentral disc protrusion indenting anterior thecal sac. No significant canal stenosis or neuroforaminal narrowing. Subarticular recesses are patent. 4. L4-L5: Posterior mild diffuse disc bulge indenting anterior thecal sac. No significant canal stenosis or neuroforaminal narrowing. Subarticular recesses are patent. Electronically signed by Prasad Felton 09-08-2024 02:29 AM Abdomen/Pelvis CTA 09/08/24 00:43 EXAM: CT angio abd pelvis wo/w con CLINICAL HISTORY: severe back pain, hx celiac and hepatic dissection TECHNIQUE: Contrast enhanced thin slice CT angiography scan of the abdominal aorta was performed without and with intravenous contrast. Angiographic images were processed, 3D MIP images were acquired for interpretation. Contiguous axial images were obtained. Reformatted coronal and sagittal images were also reviewed. If IV contrast material had not been administered, the likelihood of detecting abnormalities relevant to the patients condition would have been substantially decreased. CT scan was performed according to ALARA (as low as reasonable achievable). COMPARISON: none. FINDINGS: Evidence of hypodense septum is noted involving celiac trunk extending into the proximal part of right common hepatic artery and splenic artery- suggestive of dissection. Evidence of hypodense filling defect is noted involving false lumen of right common hepatic artery dissection- suggest possibility of thrombosis. Abdominal aorta is normal in course, calibre and opacification. Origin of superior mesenteric artery , bilateral main renal and lumbar arteries are normal with no hemodynamically significant ostial stenosis noted. Bilateral common, external and internal iliac arteries are normal in course, caliber and opacification. Hepatic steatosis. Multiple small uncomplicated sigmoid colonic diverticulosis Solid abdominal organs including spleen, pancreas and bilateral kidneys reveal no significant abnormality. Bowel loops are grossly unremarkable. No evidence of ascites. IMPRESSION: 1. Evidence of hypodense septum is noted involving celiac trunk extending into the proximal part of common hepatic artery and splenic artery- suggestive of dissection. 2. Evidence of hypodense filling defect is noted involving false lumen of right common hepatic artery dissection- suggest possibility of thrombosis. 3. Hepatic steatosis. 4. Multiple small uncomplicated sigmoid colonic diverticulosis Electronically signed by Prasad Felton 09-08-2024 03:21 AM Chest CTA 09/08/24 00:43 EXAM: CT angio chest dissec wo/w con CLINICAL HISTORY: severe back pain, hx celiac and hepatic dissection TECHNIQUE: Contiguous axial images were obtained from the neck base through the upper abdomen with and without intravenous administration of iodinated contrast material. Angiographic images were processed, 3D MIP images were acquired for interpretation. If IV contrast material had not been administered, the likelihood of detecting abnormalities relevant to the patient's condition would have been substantially decreased. Coronal and sagittal 3-D MIPs were likewise performed and indicated to increase the sensitivity of detectin diffuse clinically relevant pathology. CT scan was performed according to ALARA (as low as reasonable achievable). COMPARISON: None. FINDINGS: Adequate contrast bolus without evidence of pulmonary embolism. The central airways are patent. The lungs are clear. No pleural effusion. The heart, aorta, and pulmonary arteries are of normal size and configuration. There are no appreciable coronary artery and aortic atherosclerotic calcifications. No pericardial effusion is identified. The thyroid is unremarkable. No mediastinal, hilar, or axillary lymphadenopathy is noted. No suspicious lytic or sclerotic osseous lesions are identified. IMPRESSION: No evidence of pulmonary embolism or pulmonary disease. No obvious aortic dissection or aneurysm. Electronically signed by Prasad Felton 09-08-2024 03:15 AM PG Care Time/CCT Total # of Minutes Spent Total Time Spent with Patient: Total time spent is greater than 50% in coordination of care (as documented) at patient's floor/unit and/or counseling patient: Supervising Physician Co-Signing Physician Notes Discussed the above plan with Diaz Paula PA-C and agree with history and physical exam as documented above. Personally examined the patient this afternoon and agree with everything as above, he does have some decreased strength of the left leg with hip flexion however feels this is likely due to exacerbation of pain with movement rather than neurologic deficit. There is minimal stenosis in his lumbar MRI, disc bulge which could certainly indicate an acute tear of the annulus with back pain and spasms. No plan for surgical intervention as new target for decompression. He may benefit from a referral to pain management for evaluation of change in medications versus epidural injections. Do not see any signs concerning for thoracic myelopathy, symptoms seem to be more consistent with a left lower extremity radiculopathy. Will monitor while he is in-house and okay to follow-up as an outpatient once pain is controlled and other medical issues are Coding Level of Care Code 98134 IN/OBS CONSULT LVL 2,35M Medical Decision Making Low Complexity Diagnoses Bulging lumbar disc M51.369
--- NOTE | 2024-09-08 13:09 | Discharge Summary ---
Date of Service September 08, 2024 Admission HPI Per Admitting Provider Reed Calderon is a 49yo male with history of HTN, chronic dissection of hepatic artery presenting with severe back pain with radicular symptoms. Patient was picking up his child on 09/04/24 - lifting with some twisting. He heard a pop and had severe pain in his lumbar back. He has had radiation of pain as well as numbness and tingling of the LLE now with symptoms involving his RLE a well. Legs feel weak and he required some help getting up and in the vehicle this evening. No falls, trauma, fever, chills. No bowel or bladder complaints. No additional complaints at this time In the ER patient afebrile, HD stable ER Course: Toradol 10mg IV Dexamethasone 10mg IV Valium 5mg IV Morphine 4mg IV Admission Exam (Per Admitting) Constitutional The patient is awake, alert and oriented 3, well developed and well nourished, normocephalic and atraumatic, lying in bed and in no acute distress. HEENT--PERRL, EOMI, mucous membranes and oropharynx mildly dry Neck--supple. No JVD. No bruits. Thyroid normal, trachea midline, no adenopathy. Heart--normal S1 and S2. No murmurs, rubs or gallops. Lungs--clear bilaterally, no respiratory distress, no accessory muscle use. Abdomen--normal bowel sounds and soft. Extremities--no cyanosis or clubbing. No edema. Dermatologic--normal skin turgor, normal color, no abnormal lymph nodes, no hafsa h. Neurologic--cranial nerves II through XII grossly intact. Rheumatologic--normal range of motion. Psychiatric--normal affect. Discharge Data Consultations 09/08/24 03:42 ED Decision to Admit Stat 09/08/24 04:18 Consult Orthopedic Spine Surgery Routine 09/08/24 09:07 Consult Pain Management Routine Hospital Course (1) Intractable low back pain: (2) Hepatic artery dissection: (3) Hypothyroidism: Plan 49yo male presenting with acute lumbar back pain with radiculopathy - numbness, tingling, subjective weakness of bilateral LE L>R. Pain occurred acutely after lifting up his child. Patient with chronic dissection of the hepatic artery. He has been evaluated by vascular surgery in the past and has been told that there is nothing to do. He was previously on ASA and Plavix but has been on ASA alone for a while. He has not had thrombus present in the dissection before to his knowledge. He has missed the last several followup appointments for imaging for this issue. #Intractable low back pain - acute onset 3 days ago. MRI results as above with posterior small left paracentral disc protrusion indenting anterior thecal sac at L3-L4 and L4-L5 posterior mild diffuse disc bulge indenting anterior thecal sac. -Observation to medical -Tylenol 1gm PO TID scheduled -Prednisone 40mg po daily - patient received 10mg IV Dexamethasone in ER -Flexeril 5mg po TID -Heat -Morphine PRN -Ortho-Spine consultation appreciated, conservative mgt for now -PT evaluation appreciated -Outpatient follow up with pain mgt #Hepatic artery dissection - suggestion of thrombus on imaging -stop heparin discharge on eliquis stop aspirin, but contiue plavix #Hypothyroidism -Check TSH -Continue Synthroid 150mcg po daily Coding Level of Care Code 46060 INP/OBS DISCH >30 MIN Diagnoses Intractable low back pain M54.59 Hepatic artery dissection I77.79 Acquired hypothyroidism E03.9 Hypothyroidism type: acquired Time Spent (min) 35
== END 2024-09-08 13:36 | disposition home or self-care (01) | DRG 551 ==
LOC: 3E 00:14 → ED 00:14 → SUATTDRO 04:18 → 3E 05:26